=== PATIENT | female | born 1985 | race Hispanic/Latino ===

== ENCOUNTER 2019-01-19 10:56 | Emergency (ER) | payer BC ==
[~2019-01-19] VITALS: Ht 157.5 cm; Wt 104.3 kg
--- OUTSIDE RECORDS SUMMARY | 2019-01-19 11:04 | XMS REPORT | Continuity of Care Document ---
Author Author [facility] Address Unknown Phone Unavailable Care Team Providers [employer] Name Role Phone OfficialVirtualDJ Information KitLocate Unavailable Unavailable Problems Problem Status Onset Date Classification Date Reported Comments Source Obesity Active Problem 11/19/2018 [facility] Physical exam Active Problem 11/19/2018 [facility] Vaginitis Active Problem 11/19/2018 [facility] Medications Medication Details Route Status Patient Instructions Ordering Provider Order Date Source Metronidazole 500 MG Oral Tablet 500 mg=1 tab, PO, BID, X 8 day, # 16 tab, 0 Refill(s), Pharmacy: [facility] [id number] Active 11/16/2018 [facility] Fluconazole 150 MG Oral Tablet [Diflucan] See Instructions, 1 tab PO ONCE a week, # 2 tab, 0 Refill(s), Pharmacy: [facility] [id number] Active 11/05/2018 [facility] Allergies, Adverse Reactions, Alerts Substance Category Reaction Severity Reaction type Status Date Reported Comments Source No Known Medication Allergies Assertion Drug allergy [facility] Immunizations No Data Provided for This Section Results No Data Provided for This Section Pathology Reports No Data Provided for This Section Diagnostic Reports No Data Provided for This Section Consultation Notes No Data Provided for This Section Discharge Summaries No Data Provided for This Section History and Physicals No Data Provided for This Section Vital Signs Vital Sign Value Date Comments Source Height 160.02 cm 11/05/2018 [facility] Heart Rate 69 11/05/2018 [facility] Temperature Oral (F) 98.1 F 11/05/2018 [facility] Weight 106.477 11/05/2018 [facility] BMI Calculated 41.58 11/05/2018 [facility] Systolic (mm Hg) 107 11/05/2018 [facility] Diastolic (mm Hg) 69 11/05/2018 [facility] Encounters Location Location Details Encounter Type Encounter Number Reason For Visit Attending Provider ADM Date DC Date Status Source Outpatient [id number] Jessie Carmenchristophe 11/05/2018 [facility] [place] [facility] [id number] Jessie Carmenates 11/05/2018 11/06/2018 [facility] Between Visit [id number] 11/16/2018 11/17/2018 [facility] Procedures Procedure Code Date Perfomer Comments Source Collection of venous blood by venipuncture 84001 11/05/2018 [facility] Assessment and Plan No Data Provided for This Section Plan of Care No Data Provided for This Section Social History Social History Date Source Social History TypeResponse Substance Abuse Use: None. Sexual Sexually active: Yes. Employment/School Status: Employed. Alcohol Never Smoking Status Never smoker; Exposure to Tobacco Smoke None; Cigarette Smoking Last 365 Days No; Reg Smoking Cessation Counseling No entered on: 11/05/18 11/05/2018 [facility] Family History No Data Provided for This Section Advance Directives No Data Provided for This Section Functional Status No Data Provided for This Section
--- OUTSIDE RECORDS SUMMARY | 2019-01-19 11:04 | XMS REPORT | Summary of Care ---
Author Author [facility] Primary Care [facility] Organization [facility] Address Unknown Phone Unavailable Encounter MICHELLE Lyles(VAN) [id number] Date(s): 11/05/18 - 11/05/[address] [address]- Discharge Disposition: Home or Self Care Attending Physician: Jessie Hawkins MD Vital Signs Most recent to 1 oldest [Reference Range]: Height 160.02 cm (11/05/18 7:29 AM) Temperature Oral 98.1 DegF [96.4-99.1 DegF] (11/05/18 7:29 AM) Blood Pressure 107/69 mmHg [90-140/60-90 mmHg] (11/05/18 7:29 AM) Peripheral Pulse 69 bpm Rate [60-100 bpm] (11/05/18 7:29 AM) Weight 106.477 kg (11/05/18 7:29 AM) Body Mass Index 41.58 m2 (11/05/18 7:29 AM) Problem List Condition Effective Dates Status Health Status Informant Obesity(Confirmed) Active Physical Active exam(Confirmed) Vaginitis(Confirmed) Active Allergies, Adverse Reactions, Alerts No Known Medication Allergies Medications Diflucan 150 mg oral tablet See Instructions, 1 tab PO ONCE a week, # 2 tab, 0 Refill(s), Pharmacy: [facility] [id number] Start Date: 11/05/18 Status: Ordered Results No data available for this section Immunizations No data available for this section Procedures Procedure Date Related Diagnosis Body Site Status Collection of venous blood by venipuncture 11/05/18 Completed Social History Social History Type Response Substance Abuse Use: None. Sexual Sexually active: Yes. Employment/School Status: Employed. Alcohol Never Smoking Status Never smoker; Exposure to Tobacco Smoke None; Cigarette Smoking Last 365 Days No; Reg Smoking Cessation Counseling No entered on: 11/05/18 Assessment and Plan No data available for this section
--- OUTSIDE RECORDS SUMMARY | 2019-01-19 11:04 | XMS REPORT | Summary of Care ---
Author Author [facility] Organization [facility] Address Unknown Phone Unavailable Encounter HQ Rafal(FIN) [id number] Date(s): 11/16/18 - 11/17/18 [facility] [address] [facility] [address] [place] [address]- Vital Signs No data available for this section Problem List Condition Effective Dates Status Health Status Informant Obesity(Confirmed) Active Physical Active exam(Confirmed) Vaginitis(Confirmed) Active Allergies, Adverse Reactions, Alerts No Known Medication Allergies Medications metroNIDAZOLE 500 mg oral tablet 500 mg=1 tab, PO, BID, X 8 day, # 16 tab, 0 Refill(s), Pharmacy: [email or web address] [id number] Start Date: 11/16/18 Stop Date: 11/24/18 Status: Ordered Results No data available for this section Immunizations No data available for this section Procedures No data available for this section Social History Social History Type Response Substance Abuse Use: None. Sexual Sexually active: Yes. Employment/School Status: Employed. Alcohol Never Smoking Status Never smoker; Exposure to Tobacco Smoke None; Cigarette Smoking Last 365 Days No; Reg Smoking Cessation Counseling No entered on: 11/05/18 Assessment and Plan No data available for this section
--- OUTSIDE RECORDS SUMMARY | 2019-01-19 11:04 | XMS REPORT | Summary of Care ---
Author Author [facility] Primary Care [facility] Organization [facility] Address Unknown Phone Unavailable Encounter MICHELLE Lyles(VAN) [id number] Date(s): 11/05/18 - 11/05/[address] [address]- Discharge Disposition: Home or Self Care Attending [...] week, # 2 tab, 0 Refill(s), Pharmacy: [facility] [id number] Start Date: 11/05/18 Status: Ordered Results No [...]
[2019-01-19] MEDS ORDERED: SODIUM CHLORIDE 0.9% 1000ML 1,000 ML IV SCH (11:15)
[2019-01-19] MEDS ORDERED: ONDANSETRON HCL INJ 2MG/ML 2ML 2 MG/ML VIAL ONE (11:37)
[2019-01-19] MEDS ORDERED: SODIUM CHLORIDE 0.9% 1000ML 1,000 ML ONE (11:37)
[2019-01-19] MEDS ORDERED: KETOROLAC TROMETHAMINE 30 MG/ML VIAL ONE (11:37)
[2019-01-19] MEDS ORDERED: MORPHINE SULFATE INJ 4 MG/ML INJ 1ML ONE (11:37)
[2019-01-19] MEDS ORDERED: MORPHINE SULFATE INJ 4 MG/ML INJ 1ML IV ONE (12:00)
[2019-01-19] MEDS ORDERED: KETOROLAC TROMETHAMINE 30 MG/ML VIAL IV ONE (12:00)
[2019-01-19] MEDS ORDERED: ONDANSETRON HCL INJ 2MG/ML 2ML 2 MG/ML VIAL IV ONE (12:00)
--- NOTE | 2019-01-19 12:45 | NUR ---
PATIENT UNABLE TO GIVE URINE, PT STRAIGHT CATH AND URINE OBTAINED, PT TOLERATED WELL, URINE SENT TO LAB
--- NOTE | 2019-01-19 12:53 | NUR ---
PT PULLED OUT HER IV BECAUSE SHE WAS MOVING AROUND AND THRASHING HER ARMS, PLACED COBAN ON IV SITE AND RESTARTED IV IN RIGHT ARM. PT TOLERATED WELL
--- NOTE | 2019-01-19 13:02 | Diagnostic Imaging Report ---
PROCEDURE:CT ABD/PEL WO CONTRAST-HOPD COMPARISON:None. INDICATIONS:lt side low back pain x2 hrs neg preg Technique: Axial CT images of the abdomen and pelvis were obtained without the administration of intravenous contrast per referring physician request. Coronal and sagittal reformatted images were available for review. FINDINGS: SENSITIVITY AND SPECIFICITY OF THIS EXAMINATION IS LIMITED IN THE ABSENCE OF INTRAVENOUS CONTRAST. Lung bases: Unremarkable. Hepatobiliary: No focal hepatic lesion or intrahepatic biliary ductal dilatation. The gallbladder is unremarkable. Spleen: No splenomegaly. Splenule adjacent to the anterior splenic margin. Pancreas: No focal mass, ductal dilatation, or peripancreatic inflammation. Adrenals: No nodules. Kidneys: Right: no focal mass lesion, calculus, or hydronephrosis. Left: Mild hydroureteronephrosis and periureteral fat stranding secondary to a 2-3 mm calculus at the ureterovesical junction (series 3 image 168). No gross renal mass lesion. Pelvic organs: The urinary bladder is incompletely distended and poorly evaluated. The uterus is anteflexed and appears normal. No adnexal mass. Right ovarian dominant follicle. Peritoneum/retroperitoneum: No ascites or pneumoperitoneum. Lymph nodes: No pelvic sidewall, retroperitoneal, or mesenteric lymphadenopathy. Vasculature: Limited evaluation without intravenous contrast. The abdominal aorta is non-aneurysmal. GI tract: The large bowel shows no distention or wall thickening, though the descending and sigmoid colon are largely collapsed and poorly evaluated. The appendix is normal. No small bowel dilatation to suggest obstruction. Soft tissues: No focal soft tissue abnormalities. Morphologically normal lymph node along the right lateral chest wall. Bones: No osseous destructive lesions. CONCLUSION: 2-3 mm left ureterovesical junction calculus results in mild hydroureteronephrosis and periureteral inflammation. Dictated by: Martinez Mckinney M.D. on 01/19/2019 at 13:06 Electronically approved by: Martinez Mckinney M.D. on 01/19/2019 at 13:06
[2019-01-19 14:17] VITALS: BP 139/70
== END 2019-01-19 14:22 | disposition home or self-care (01) ==
LOC: FSED 10:56
DX: R10.9 Unspecified abdominal pain (principal); R11.2 Nausea with vomiting, unspecified; N20.1 Calculus of ureter
CPT/HCPCS: 74176; 80053; 81003; 81025; 85025; 99284; J1885; J2270; J2405; J7030